=== PATIENT | female | born 1960 | race Caucasian/White ===

== ENCOUNTER 2024-07-21 00:48 | Day surgery (SDC) | payer OTHER, SELFPAY ==
[2024-07-15 10:30] VITALS: BMI 29.7
--- NOTE | 2024-07-15 10:37 | PC.NURSE ---
Report to the Outpatient Waiting Room, entrance under the green pavilion located off [facility], at time _0700_ on date _[id number]_. Planned Procedure Time: _0900_.? Time changes happen often and if your time is changed the preop area will call you the afternoon before. - You and your visitor will be asked to self-screen and do not enter if you have any COVID symptoms. Please call surgeon if you need to reschedule. - A mask is optional within the hospital at this time. Patients may have clear liquids (water, carbonated beverages, clear teas, apple juice) until 3 hours prior to surgery with a maximum of 20 ounces. - No food from midnight until time of surgery and no smoking Take only the following medications with a SIP of water on the morning of surgery: __None DO NOT STOP ANY OF YOUR OTHER PRESCRIPTION MEDICATIONS PRIOR TO SURGERY EXCEPT THE FOLLOWING Medications to discontinue per physician ____Amaya says she's already stopped all vitamins and supplements per 's instructions. Please no make-up, nail gabonese, hairspray, perfume, deodorant, or body powder the day of surgery.? No jewelry (including any body piercings) or valuables the day of surgery, leave them at home.? Please take a shower or bath the night before, or the morning of, surgery with an antibacterial soap.? Wear comfortable, loose fitting clothing.? - Jewelry must be removed prior to entering the operating room.? Rings and piercings that are not removed may be cut off. - The hospital will not accept responsibility for valuables.? - Please leave all valuables, including medications, at home the day of surgery. If you are going home after surgery, a licensed restaurant delivery driver must drive you home.? - NO public transportation without another adult if you receive anesthesia. - We recommend that an adult stay with you for 24 hours following discharge. - We also recommend that you do not drive, make important decision, drink alcoholic beverages, or take any drugs that were not prescribed by your health care provider for at least 24 hours after your discharge time. Follow any additional instructions given to you from your surgeon. Telephone instructions given to __Osirisbie__and asked if any additional questions and then verbalized understanding. Patient advised to call surgeon office or pre surgery nurse liaison [phone] if any additional questions.
--- NOTE | 2024-07-20 11:27 | WPDANESEPPF ---
Anes - Initial Pre Proc Eval Procedure: Operation Date: 07/21/24 09:00 Proposed Procedures p Bilateral Breast Reduction - Sebastian Jane MD Date/Time: 07/20/24 11:27 Surgeon: Sebastian Jane MD Pre Op Diagnosis: Macromastia Patient Data Age: 64 Gender: F Height: 1.52 m Weight: 69 kg Allergies Allergy/AdvReac Type Severity Reaction Status Date / Time No Known Allergies Allergy Verified 07/21/24 07:44 Home Medications Medication Instructions Recorded Confirmed Type ascorbate calcium (vitamin C) 500 mg PO DAILY 03/08/21 07/15/24 History [Urmila-C] cholecalciferol (vitamin D3) 50 mcg PO DAILY 03/08/21 07/15/24 History coenzyme Q10 100 mg capsule 100 mg PO DAILY 03/08/21 07/15/24 History (CoQ-10) omega3,5,6,7,9 no.1-salmon oil 1 tab-cap PO DAILY 03/08/21 07/15/24 History vit C-E-zinc xsm-[id number]-[id number] 1 tab-cap PO DAILY 03/08/21 07/15/24 History [[facility]] Patient hx anesthesia problems: none Family hx anesthesia problems: none Results Review: All pre-operative results and documents have been reviewed as part of the pre-operative evaluation. [facility] Surgical History Surgical History (Updated 03/08/21 @ 11:23 by Sebastian Jane MD) History of bilateral breast reduction surgery 1992 History of tubal ligation 1985 Hx of LASIK 1999 Family History Family History (Updated 03/08/21 @ 09:52 by Larisa Hartley RN) Father Throat cancer Mother COPD (chronic obstructive pulmonary disease) Social History Social History (Updated 03/08/21 @ 09:51 by Larisa Hartley RN) Smoking status: Never smoker Alcohol intake: current Drinks per week: 7 Substance use: never Substance use type: does not use Living arrangements: with family Spiritual care concerns: No Anes - Eval Final PreProcedure Day of Procedure 07/20/24 11:27 Patient weight: obese Heart: regular rate and rhythm Lungs: clear to auscultation Airway: Mallampati scale class II Neurological: alert and oriented Last oral intake: >/= 8 hours ASA classification: II Emergent: no Anesthetic plan: proceed Anesthesia type and monitoring: general GIVS and standard monitoring Results Review: All pre-operative results and documents have been reviewed as part of the pre-operative evaluation. Informed Consent: The patient's anesthetic plan and its attendant risks and benefits were discussed with the patient/family/POA. Questions were solicited and answers provided to the satisfaction of the patient/family/POA.
[2024-07-21] VITALS (10 sets, daily range): BP systolic 108–149; BP diastolic 59–90; PULSE 70–88; RESP 12–20; TEMP 36.3–36.4; O2SAT 94–100; BMI 30.2
[2024-07-21] MEDS: LACTATED RINGERS 1,000 ML 30 ML IV CONT ×2 (07:45→11:34)
[2024-07-21 07:53] LABS: Urine Cotinine NEGATIVE
--- NOTE | 2024-07-21 08:22 | WPDHPUPDATE1 ---
History and Physical Update Update Date/Time: 07/21/24 08:22 History and Physical has been reviewed, including an updated exam of the patient. There are NO changes in the patient's condition. Risks, benefits, and alternatives have been discussed and questions answered. Patient agrees to proceed with procedure.
--- NOTE | 2024-07-21 08:44 | P.OP_ITS ---
Procedure Note - Detailed Date of Procedure 07/21/24 Pre-op Diagnosis Macromastia Post-op Diagnosis Same Procedure Performed Bilateral reduction mammaplasty Surgeon Sebastian Jane MD Anesthesia General Findings Inverted T Superior pedicle Tissue removed: Right: 653 grams Left: 588 grams Lipoaspirate: 1350 cc Description of Procedure She is here today for bilateral breast reduction. Previously and again today the risks, benefits, alternatives were discussed in extensive detail. I wanted her to be very realistic about the risks involved as well as expectations. We discussed aftercare and what to monitor for. She understands we can never guarantee final breast size and there will always be asymmetry. We had a lengthy discussion about her final desired size and limitation of obtaining this is great detail. She understands that her previous surgery increases risks of complication including but not limited to tissue loss (tissue ) and other significant complications. This was outlined in detail. I was very upfront and honest about the risks of sensation change and even nipple loss (). Made sure answered all of her questions to her satisfaction today and consent was obtained. She was marked in the preoperative holding area with their verification. The patient was taken to the operating room placed supine on the operating table. Anesthesia was provided by anesthesiology. She was prepped and draped in a standard sterile fashion. A surgical time-out was taken. Stab incisions were made and I tumesced with a tumescent solution. Suction lipectomy of lateral breast / chest wall was completed for contouring based on [employer] liposuction techniques utilizing a 4mm basket cannula. This was based on preoperative planning, intraoperative observation, and a rolling pinch test which was in full agreement. I marked out the nipple-areolar complex at 42 mm. I then de-epithelialized the pedicle. The pedicle was well left well more than 2 cm in thickness. I then removed the inferior portion of the breast as well as the central keel to get shape based on preoperative planning. At this point copiously irrigated with saline solution and verified a strict hemostasis. I reapproximated the pillars using a 2-0 PDS. I tailor tacked the breast into place with sukhjinder. She was placed in a sitting position. I verified the nipple-areolar complex position based on preoperative markings, intraoperative measurements, and observation which were in full agreement. This nipple-areolar complex was marked at 42 mm in size. I then placed supine and de-epithelialized this. Nipple-areolar complex was inset with 3-0 Monocryl. I closed IMF deep with 1 strattafix. I closed the vertical incision with 3-0 Monocryl in the IMF with 3- 0 stratafix. Then everything was closed using a running subcuticular 4-0 Monocryl and tissue glue. A dressing was placed followed by surgical bra. Patient was awoke and taken to PACU without difficulty. All instrument sponge counts were correct at the end of the case. Estimated Blood Loss 75 Drains No Packing No Pathology Yes (Bilateral breast tissue) Complications No immediate complications Condition Stable Disposition PACU
[2024-07-21] MEDS: TRANEXAMIC ACID 1,000MG/ISO100 1,000 MG/100 ML BAG 200 MG IVPB (08:50)
[2024-07-21] MEDS: ceFAZolin 2 GM/D5W 50 ML 2 GM/50 ML BAG IVPB (09:04)
[2024-07-21] MEDS: LACTATED RINGERS IRRIG 1,000 ML, LIDOCAINE HCL 1% LOCAL INJ 50 ML, EPINEPHrine HCL INJ ... INFILTRATE (09:24)
== END 2024-07-21 13:13 | disposition home or self-care (01) ==
PROVIDERS: Visit Provider Surgery Plastic and Reconstructive Surgery
PROC: 0HBV0ZZ Excision of Bilateral Breast, Open Approach (ICD-10-PCS; CPT 19318; principal; 2024-07-21 09:00)
DX: Z41.1 Encounter for cosmetic surgery (principal); N62 Hypertrophy of breast; E66.9 Obesity, unspecified; Z68.30 Body mass index [BMI] 30.0-30.9, adult; Z98.890 Other specified postprocedural states; Z98.51 Tubal ligation status; Z80.1 Family history of malignant neoplasm of trachea, bronchus and lung
CPT/HCPCS: 19318; 80307; 88305; 88342; J0171; J0690; J1100; J2003; J2250; J2405; J2704; J3010; J7120